=== PATIENT | female | born 1995 | race African-American/Black ===

== ENCOUNTER 2021-04-08 19:21 | Emergency (ER) | payer OTHER ==
[2021-04-08] MEDS ORDERED: PANTOPRAZOLE 40 MG VIAL IVP STA (19:50)
[2021-04-08] MEDS ORDERED: SODIUM CHLORIDE 0.9% 1,000 ML IV STA ×2 (19:50→19:58)
[2021-04-08] MEDS ORDERED: ONDANSETRON 4 MG/2 ML VIAL IVP STA (19:50)
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
[2021-04-08 20:01] LABS: BASOPHILS # (AUTO) 0.1 10^3/uL (0.0-0.1); EOSINOPHILS % (AUTO) 0.4 %; HCT - HEMATOCRIT 41.7 % (37.0-47.0); HGB - HEMOGLOBIN 13.5 g/dL (12.0-16.0); LYMPHOCYTES # (AUTO) 1.1 10^3/uL (1.5-3.5); LYMPHOCYTES % (AUTO) 14.4 %; MEAN CORPUSCULAR HEMOGLOBIN 26.7 pg (27.0-31.0); MEAN CORPUSCULAR HGB CONC 32.4 g/dL (32.0-36.0); MEAN CORPUSCULAR VOLUME 82.6 fL (81.0-99.0); MEAN PLATELET VOLUME 8.7 fL (7.9-10.8); MONOCYTES # (AUTO) 0.4 10^3/uL (0.0-1.0); MONOCYTES % (AUTO) 5.1 %; NEUTROPHILS # (AUTO) 6.1 10^3/uL (1.5-6.6); NEUTROPHILS % (AUTO) 78.7 %; PLT - PLATELET COUNT 314 10^3/uL (130-450); RED BLOOD COUNT 5.05 10^6/uL (4.20-5.40); RED CELL DISTRIBUTION WIDTH 14.2 % (12.0-15.0); WHITE BLOOD COUNT 7.8 x10^3/uL (4.8-10.8)
[2021-04-08 20:14] LABS: ALBUMIN 4.7 g/dL (3.2-5.5); ALBUMIN/GLOBULIN RATIO 1.4 (1.0-2.2); CREATININE 0.6 mg/dL (0.4-1.0); POTASSIUM 3.5 mmol/L (3.5-5.0)
[2021-04-08] MEDS ORDERED: HALOPERIDOL 5 MG/ML VIAL IVP ONE (20:42)
[2021-04-08 21:03] LABS: BILIRUBIN,URINE NEGATIVE (NEGATIVE); GLUCOSE, URINE (UA) NEGATIVE (NEGATIVE); KETONES,URINE (UA) NEGATIVE (NEGATIVE); LEUKOCYTE ESTERASE, URINE NEGATIVE (NEGATIVE); NITRITE,URINE NEGATIVE (NEGATIVE); OCCULT BLOOD,URINE NEGATIVE (NEGATIVE); PH,URINE 8.5 PH (5.0-7.5); PROTEIN,URINE TRACE mg/dL (NEGATIVE); UROBILINOGEN,URINE 0.2 (NORMAL) E.U./dL (NORMAL)
[2021-04-08 21:05] LABS: CLARITY,URINE CLEAR (CLEAR); HCG UR QUAL NEGATIVE
[2021-04-08 21:10] LABS: MUDS CUTOFF CONCENTRATIONS CUTOFF CONC BELOW:
[2021-04-08 21:20] LABS: AMPHETAMINE SCREEN,URINE NEGATIVE (NEGATIVE); BARBITURATE SCREEN,UR POSITIVE (NEGATIVE); BENZODIAZEPINES SCREEN, URINE NEGATIVE (NEGATIVE); COCAINE SCREEN URINE NEGATIVE (NEGATIVE); METHADONE SCREEN, URINE NEGATIVE (NEGATIVE); METHAMPHETAMINES SCREEN, URINE NEGATIVE (NEGATIVE); OPIATE SCREEN, URINE NEGATIVE (NEGATIVE); OXYCODONE SCREEN, URINE NEGATIVE (NEGATIVE); PROPOXYPHENE SCREEN, URINE NEGATIVE (NEGATIVE); THC CANNABINOID SCREEN, URINE POSITIVE (NEGATIVE); TRICYCLIC ANTIDEPRESSANT,URINE NEGATIVE (NEGATIVE)
[2021-04-08 21:39] VITALS: BP 116/89
== END 2021-04-08 21:41 | disposition home or self-care (01) ==
LOC: ED 19:21
DX: T42.3X1A Poisoning by barbiturates, accidental (unintentional), initial encounter (principal); R11.2 Nausea with vomiting, unspecified; F12.10 Cannabis abuse, uncomplicated
CPT/HCPCS: 36415; 80053; 80306; 80320; 81001; 81003; 81025; 83690; 85025; 87086; 96361; 96374; 96375; 99283

== ENCOUNTER 2022-02-23 08:00 | Outpatient (CLI) | payer OTHER ==
[2022-02-23 23:00] LABS: BACTERIAL VAGINOSIS DNA NEGATIVE (NEGATIVE); CANDIDA GLABRATA DNA NEGATIVE (NEGATIVE); CANDIDA GROUP DNA POSITIVE (NEGATIVE); CANDIDA KRUSEI DNA NEGATIVE (NEGATIVE); TRICHOMONAS VAGINALIS DNA NEGATIVE (NEGATIVE)
[2022-02-24 00:01] LABS: CHLAMYDIA TRACHOMATIS DNA NEGATIVE (NEGATIVE); NEISSERIA GONORRHOEAE DNA NEGATIVE (NEGATIVE)
[2022-02-24 06:09] LABS: HIV SCREEN 4TH GENERATION Non Reactive (Non Reactive); HSV 1 IGG TYPE SPEC <0.91 index (0.00-0.90); HSV 2 IGG TYPE SPEC <0.91 index (0.00-0.90)
[2022-02-24 08:10] LABS: RPR Non Reactive (Non Reactive)
== END 2022-02-23 23:59 | disposition home or self-care (01) ==
LOC: LAB.N 08:00
PROVIDERS: ATTEND Family Medicine
DX: R30.0 Dysuria (principal); N89.8 Other specified noninflammatory disorders of vagina; Z20.2 Contact with and (suspected) exposure to infections with a predominantly sexual mode of transmission
CPT/HCPCS: 81514; 86592; 86695; 86696; 87086; 87389; 87491; 87591; 87661

== ENCOUNTER 2022-08-01 11:56 | Emergency (ER) | payer OTHER ==
[2022-08-01 12:11] VITALS: BP 118/78
--- NOTE | 2022-08-01 12:44 | XRAY Report ---
PROCEDURE: Chest 2 View X-Ray INDICATIONS: cough TECHNIQUE: 2 views of the chest were acquired. COMPARISON: None. FINDINGS: Surgical changes and devices: None. Lungs and pleura: No pleural effusions or pneumothorax. Lungs are clear. Mediastinum: Mediastinal contours are normal. Heart size is normal. Bones and chest wall: No suspicious bony abnormalities. Soft tissues appear unremarkable. IMPRESSION: No acute radiographic abnormality. Reviewed by: Lester Davis MD on 08/01/2022 12:43 PM PST Approved by: Lester Davis MD on 08/01/2022 12:43 PM PST Station ID: [id number]
--- OUTSIDE RECORDS SUMMARY | 2022-08-01 12:53 | EXTERNAL MEDICAL SUMMARY RPT | Continuity of Care Document ---
:1995 Author Organization [facility] Address [address] [place] [phone] Phone Care Team Providers Name Role Phone Armando King Unavailable Unavailable Allergies No information. Encounters No information. Functional Status No information. Immunizations No information. Medications No information. Problems No information. Procedures No information. Results/Labs test date author facility value unit interpret ation Result panel 1 (unknown) (no (unknown) (unknown) (no value) (units (unk nown) date) unknown) (unknown) (no (unknown) (unknown) [id number] (units (unkno wn) date) unknown) (unknown) (no (unknown) (unknown) 08:37 (units (unkno wn) date) unknown) (unknown) (no (unknown) (unknown) 05/09/22 (units (unkno wn) date) unknown) (unknown) (no (unknown) (unknown) 05/09/22] (units (unkn own) date) unknown) (unknown) (no (unknown) (unknown) 26 yo female (units (u nknown) date) presents today unknown) for a medication review/ADHD. (unknown) (no (unknown) (unknown) Additional (units (unk nown) date) Social History unknown) (unknown) (no (unknown) (unknown) Adult ADHD (units (unk nown) date) unknown) (unknown) (no (unknown) (unknown) Age/Sex: 26 / F (units (unknown) date) Date of Service: unknown) (unknown) (no (unknown) (unknown) Allergies (units (unkn own) date) unknown) (unknown) (no (unknown) (unknown) [place], [place] (units ( unknown) date) [id number] unknown) (unknown) (no (unknown) (unknown) Anxiety (units (unkno wn) date) unknown) (unknown) (no (unknown) (unknown) Attending Dr: (units ( unknown) date) Armando King unknown) D.O. (unknown) (no (unknown) (unknown) : 1995 (units (unknown) date) Acct:[id number] unknown) (unknown) (no (unknown) (unknown) Dept at (units (unkno wn) date) . unknown) (unknown) (no (unknown) (unknown) Diabetes (units (unkno wn) date) mellitus unknown) (unknown) (no (unknown) (unknown) Diet and (units (unkno wn) date) Exercise unknown) (unknown) (no (unknown) (unknown) Documented By: (units (unknown) date) Armando King unknown) D.O. 05/09/22 0836 (unknown) (no (unknown) (unknown) Draft (units (unkno wn) date) unknown) (unknown) (no (unknown) (unknown) Dysmenorrhea (units (u nknown) date) unknown) (unknown) (no (unknown) (unknown) Excess skin of (units (unknown) date) abdominal wall unknown) (unknown) (no (unknown) (unknown) Family History (units (unknown) date) (Reviewed unknown) 02/20/21 @ 13:37 by KATY Alejandro) (unknown) (no (unknown) (unknown) Family Practice (units (unknown) date) Office Visit unknown) (unknown) (no (unknown) (unknown) Father (units (unknown) date) No problems unknown) noted. (unknown) (no (unknown) (unknown) [facility] (units (unknown) date[facility] unknown) (unknown) (no (unknown) (unknown) Grandmother (units (un known) date) unknown) Hypertension (unknown) (no (unknown) (unknown) Height 5 ft 6 in (units (unknown) date) unknown) (unknown) (no (unknown) (unknown) Insomnia (units (unkno wn) date) unknown) (unknown) (no (unknown) (unknown) Intake Note: (units (u nknown) date) unknown) (unknown) (no (unknown) (unknown) Intake performed (units (unknown) date) by: Yoselyn Spence unknown) (unknown) (no (unknown) (unknown) Intake (units (unkno wn) date) unknown) (unknown) (no (unknown) (unknown) Intake- Clincial (units (unknown) date) Staff unknown) (unknown) (no (unknown) (unknown) Last Menstural (units (unknown) date) Cycle + Details unknown) (unknown) (no (unknown) (unknown) Loc: [facility] (units (unkno wn) date) unknown) (unknown) (no (unknown) (unknown) Medical History (units (unknown) date) (Updated 04/24/21 unknown) @ 14:54 by Armando King DO) (unknown) (no (unknown) (unknown) Medications (units (un known) date) unknown) (unknown) (no (unknown) (unknown) Mental health (units ( unknown) date) problem unknown) (unknown) (no (unknown) (unknown) Mother (units (unkno wn) date) Hypertension unknown) (unknown) (no (unknown) (unknown) (normal (units (u nknown) date) spontaneous unknown) vaginal delivery) (unknown) (no (unknown) (unknown) No Known Drug (units ( unknown) date) Allergies Allergy unknown) (Verified 05/09/22 08:37) (unknown) (no (unknown) (unknown) Other Menstrual (units (unknown) date) Period: Uncertain unknown) (unknown) (no (unknown) (unknown) PFSH (units (unkno wn) date) unknown) (unknown) (no (unknown) (unknown) Patellar (units (unkno wn) date) tendinitis of unknown) both knees (unknown) (no (unknown) (unknown) Patient: (units (unkno wn) date) Pia Chavez S unknown) MR#: [id number] (unknown) (no (unknown) (unknown) Reason For Visit (units (unknown) date) unknown) (unknown) (no (unknown) (unknown) Safety (units (unkno wn) date) unknown) (unknown) (no (unknown) (unknown) Scabies (units (unkno wn) date) unknown) (unknown) (no (unknown) (unknown) Signed By: (units (unk nown) date) unknown) (unknown) (no (unknown) (unknown) Smoking Status: (units (unknown) date) Never smoker unknown) (unknown) (no (unknown) (unknown) Social History (units (unknown) date) unknown) (unknown) (no (unknown) (unknown) Stroke (units (unkno wn) date) unknown) (unknown) (no (unknown) (unknown) This note may (units ( unknown) date) have been all or unknown) partially generated using voice recognition (unknown) (no (unknown) (unknown) Tobacco + (units (unkn own) date) Substance Use unknown) (unknown) (no (unknown) (unknown) Tobacco Status (units (unknown) date) unknown) (unknown) (no (unknown) (unknown) Type(s) of (units (unk nown) date) exercise: other unknown) (unknown) (no (unknown) (unknown) Vaginal (units (unkno wn) date) discharge unknown) (unknown) (no (unknown) (unknown) Visit Reasons: (units (unknown) date) Medication unknown) Review/ADHD (unknown) (no (unknown) (unknown) Vitals (units (unkno wn) date) unknown) (unknown) (no (unknown) (unknown) Well woman exam (units (unknown) date) with routine unknown) gynecological exam (unknown) (no (unknown) (unknown) additional (units (unk nown) date) social history: unknown) Taking care toddler (chasing) (unknown) (no (unknown) (unknown) caffeine: Yes (units ( unknown) date) (Rare) unknown) (unknown) (no (unknown) (unknown) daily servings (units (unknown) date) fruits/ve-1 unknown) (unknown) (no (unknown) (unknown) do you feel safe (units (unknown) date) at home: Yes unknown) (unknown) (no (unknown) (unknown) duration: 45-60 (units (unknown) date) minutes/day unknown) (unknown) (no (unknown) (unknown) during the past (units (unknown) date) year weight has: unknown) remained stable (unknown) (no (unknown) (unknown) eating out: 1-3 (units (unknown) date) times/week unknown) (unknown) (no (unknown) (unknown) escitalopram (units (u nknown) date) oxalate 20 mg unknown) tablet 20 mg PO DAILY anxiety with depression #30 (unknown) (no (unknown) (unknown) frequency: daily (units (unknown) date) unknown) (unknown) (no (unknown) (unknown) have occurred. (units (unknown) date) If there are any unknown) questions, please contact the Medical Records (unknown) (no (unknown) (unknown) household (units (unkn own) date) members: spouse unknown) and children (unknown) (no (unknown) (unknown) ibuprofen 600 mg (units (unknown) date) tablet 600 mg PO unknown) TID PRN pain #90 tabs 08/04/20 [Rx Confirmed (unknown) (no (unknown) (unknown) marital status: (units (unknown) date) unknown) (unknown) (no (unknown) (unknown) may occur. (units (unk nown) date) Occasional unknown) wrong-word or 'sound-alike' substitutions may have (unknown) (no (unknown) (unknown) number of (units (unkn own) date) children: 1 unknown) (unknown) (no (unknown) (unknown) occupational (units (u nknown) date) status: unknown) unemployed (unknown) (no (unknown) (unknown) occurred due to (units (unknown) date) the inherent unknown) limitations of voice recognition software. Please (unknown) (no (unknown) (unknown) pets and (units (unkno wn) date) animals: No unknown) (unknown) (no (unknown) (unknown) read the note (units ( unknown) date) carefully and unknown) recognize, using context, where these substitutions (unknown) (no (unknown) (unknown) sexual history: (units (unknown) date) Monogamous with unknown) , no hx STDs (unknown) (no (unknown) (unknown) software. (units (unkn own) date) Although every unknown) effort is made to edit content, supervisor opening and picking errors (unknown) (no (unknown) (unknown) substance use (units ( unknown) date) type: former unknown) substance user (unknown) (no (unknown) (unknown) tabs 04/04/22 (units ( unknown) date) [Rx Confirmed unknown) 05/09/22] (unknown) (no (unknown) (unknown) well-balanced (units ( unknown) date) diet: about half unknown) the time Result panel 2 (unknown) (no (unknown) (unknown) (no value) (units (unk nown) date) unknown) (unknown) (no (unknown) (unknown) [id number] (units (unkno wn) date) unknown) (unknown) (no (unknown) (unknown) 08:37 (units (unkno wn) date) unknown) (unknown) (no (unknown) (unknown) 05/09/22 (units (unkno wn) date) unknown) (unknown) (no (unknown) (unknown) 05/09/22] (units (unkn own) date) unknown) (unknown) (no (unknown) (unknown) 26 yo female (units (un known) date) presents today unknown) for a medication review/ADHD. Pt states she was sent (unknown) (no (unknown) (unknown) Additional (units (unk nown) date) Social History unknown) (unknown) (no (unknown) (unknown) Adult ADHD (units (unk nown) date) unknown) (unknown) (no (unknown) (unknown) Age/Sex: 26 / F (units (unknown) date) Date of Service: unknown) (unknown) (no (unknown) (unknown) Allergies (units (unkn own) date) unknown) (unknown) (no (unknown) (unknown) [place], [place] (units ( unknown) date) [id number] unknown) (unknown) (no (unknown) (unknown) Anxiety (units (unkno wn) date) unknown) (unknown) (no (unknown) (unknown) Attending Dr: (units ( unknown) date) Armando King unknown) D.O. (unknown) (no (unknown) (unknown) BMI 25.0 (units (unkno wn) date) unknown) (unknown) (no (unknown) (unknown) BP 112/62 (units (unkn own) date) unknown) (unknown) (no (unknown) (unknown) Blood Pressure (units (unknown) date) Location Lt unknown) brachial (unknown) (no (unknown) (unknown) : 1995 (units (unknown) date) Acct:[id number] unknown) (unknown) (no (unknown) (unknown) Dept at (units (unkno wn) date) . unknown) (unknown) (no (unknown) (unknown) Diabetes (units (unkno wn) date) mellitus unknown) (unknown) (no (unknown) (unknown) Diet and (units (unkno wn) date) Exercise unknown) (unknown) (no (unknown) (unknown) Documented By: (units (unknown) date) Armando King unknown) D.OColin 05/09/22 0836 (unknown) (no (unknown) (unknown) Draft (units (unkno wn) date) unknown) (unknown) (no (unknown) (unknown) Dysmenorrhea (units (u nknown) date) unknown) (unknown) (no (unknown) (unknown) Excess skin of (units (unknown) date) abdominal wall unknown) (unknown) (no (unknown) (unknown) Family History (units (unknown) date) (Reviewed unknown) 02/20/21 @ 13:37 by KATY Alejandro) (unknown) (no (unknown) (unknown) Family Practice (units (unknown) date) Office Visit unknown) (unknown) (no (unknown) (unknown) Father (units (unknown) date) No problems unknown) noted. (unknown) (no (unknown) (unknown) [facility] (units (unknown) date) [facility] unknown) (unknown) (no (unknown) (unknown) Grandmother (units (un known) date) unknown) Hypertension (unknown) (no (unknown) (unknown) Height 5 ft 6 in (units (unknown) date) unknown) (unknown) (no (unknown) (unknown) Insomnia (units (unkno wn) date) unknown) (unknown) (no (unknown) (unknown) Intake Note: (units (u nknown) date) unknown) (unknown) (no (unknown) (unknown) Intake performed (units (unknown) date) by: Yoselyn Spence unknown) (unknown) (no (unknown) (unknown) Intake (units (unkno wn) date) unknown) (unknown) (no (unknown) (unknown) Intake- Clincial (units (unknown) date) Staff unknown) (unknown) (no (unknown) (unknown) Last Menstural (units (unknown) date) Cycle + Details unknown) (unknown) (no (unknown) (unknown) Loc: [facility] (units (unkno wn) date) unknown) (unknown) (no (unknown) (unknown) Medical History (units (unknown) date) (Updated 04/24/21 unknown) @ 14:54 by Armando King DO) (unknown) (no (unknown) (unknown) Medications (units (un known) date) unknown) (unknown) (no (unknown) (unknown) Mental health (units ( unknown) date) problem unknown) (unknown) (no (unknown) (unknown) Mother (units (unkno wn) date) Hypertension unknown) (unknown) (no (unknown) (unknown) (normal (units (u nknown) date) spontaneous unknown) vaginal delivery) (unknown) (no (unknown) (unknown) No Known Drug (units ( unknown) date) Allergies Allergy unknown) (Verified 05/09/22 08:37) (unknown) (no (unknown) (unknown) Other Menstrual (units (unknown) date) Period: Uncertain unknown) (unknown) (no (unknown) (unknown) Oxygen Delivery (units (unknown) date) Method room air unknown) (unknown) (no (unknown) (unknown) PFSH (units (unkno wn) date) unknown) (unknown) (no (unknown) (unknown) Patellar (units (unkno wn) date) tendinitis of unknown) both knees (unknown) (no (unknown) (unknown) Patient: (units (unkno wn) date) Pia Chavez S unknown) MR#: [id number] (unknown) (no (unknown) (unknown) Position Sitting (units (unknown) date) unknown) (unknown) (no (unknown) (unknown) Pulse 99 H (units (unk nown) date) unknown) (unknown) (no (unknown) (unknown) Pulse Oximetry (units (unknown) date) (%) 97 unknown) (unknown) (no (unknown) (unknown) Pulse Source (units (u nknown) date) Monitor unknown) (unknown) (no (unknown) (unknown) Reason For Visit (units (unknown) date) unknown) (unknown) (no (unknown) (unknown) Safety (units (unkno wn) date) unknown) (unknown) (no (unknown) (unknown) Scabies (units (unkno wn) date) unknown) (unknown) (no (unknown) (unknown) Signed By: (units (unk nown) date) unknown) (unknown) (no (unknown) (unknown) Smoking Status: (units (unknown) date) Never smoker unknown) (unknown) (no (unknown) (unknown) Social History (units (unknown) date) unknown) (unknown) (no (unknown) (unknown) Stroke (units (unkno wn) date) unknown) (unknown) (no (unknown) (unknown) This note may (units ( unknown) date) have been all or unknown) partially generated using voice recognition (unknown) (no (unknown) (unknown) Tobacco + (units (unkn own) date) Substance Use unknown) (unknown) (no (unknown) (unknown) Tobacco Status (units (unknown) date) unknown) (unknown) (no (unknown) (unknown) Type(s) of (units (unk nown) date) exercise: other unknown) (unknown) (no (unknown) (unknown) Vaginal (units (unkno wn) date) discharge unknown) (unknown) (no (unknown) (unknown) Visit Reasons: (units (unknown) date) Medication unknown) Review/ADHD (unknown) (no (unknown) (unknown) Vitals (units (unkno wn) date) unknown) (unknown) (no (unknown) (unknown) Weight 155 lb 4 (units (unknown) date) oz unknown) (unknown) (no (unknown) (unknown) Well woman exam (units (unknown) date) with routine unknown) gynecological exam (unknown) (no (unknown) (unknown) additional (units (unk nown) date) social history: unknown) Taking care toddler (chasing) (unknown) (no (unknown) (unknown) caffeine: Yes (units ( unknown) date) (Rare) unknown) (unknown) (no (unknown) (unknown) daily servings (units (unknown) date) fruits/ve-1 unknown) (unknown) (no (unknown) (unknown) do you feel safe (units (unknown) date) at home: Yes unknown) (unknown) (no (unknown) (unknown) duration: 45-60 (units (unknown) date) minutes/day unknown) (unknown) (no (unknown) (unknown) during the past (units (unknown) date) year weight has: unknown) remained stable (unknown) (no (unknown) (unknown) eating out: 1-3 (units (unknown) date) times/week unknown) (unknown) (no (unknown) (unknown) escitalopram (units (u nknown) date) oxalate 20 mg unknown) tablet 20 mg PO DAILY anxiety with depression #30 (unknown) (no (unknown) (unknown) frequency: daily (units (unknown) date) unknown) (unknown) (no (unknown) (unknown) have occurred. (units (unknown) date) If there are any unknown) questions, please contact the Medical Records (unknown) (no (unknown) (unknown) household (units (unkn own) date) members: spouse unknown) and children (unknown) (no (unknown) (unknown) ibuprofen 600 mg (units (unknown) date) tablet 600 mg PO unknown) TID PRN pain #90 tabs 08/04/20 [Rx Confirmed (unknown) (no (unknown) (unknown) marital status: (units (unknown) date) unknown) (unknown) (no (unknown) (unknown) may occur. (units (unk nown) date) Occasional unknown) wrong-word or 'sound-alike' substitutions may have (unknown) (no (unknown) (unknown) number of (units (unkn own) date) children: 1 unknown) (unknown) (no (unknown) (unknown) occupational (units (u nknown) date) status: unknown) unemployed (unknown) (no (unknown) (unknown) occurred due to (units (unknown) date) the inherent unknown) limitations of voice recognition software. Please (unknown) (no (unknown) (unknown) pets and (units (unkno wn) date) animals: No unknown) (unknown) (no (unknown) (unknown) previously for (units (unknown) date) ADHD but the unknown) office didn't have the Dr available. (unknown) (no (unknown) (unknown) read the note (units ( unknown) date) carefully and unknown) recognize, using context, where these substitutions (unknown) (no (unknown) (unknown) sexual history: (units (unknown) date) Monogamous with unknown) , no hx STDs (unknown) (no (unknown) (unknown) software. (units (unkn own) date) Although every unknown) effort is made to edit content, supervisor opening and picking errors (unknown) (no (unknown) (unknown) substance use (units ( unknown) date) type: former unknown) substance user (unknown) (no (unknown) (unknown) tabs 04/04/22 (units ( unknown) date) [Rx Confirmed unknown) 05/09/22] (unknown) (no (unknown) (unknown) well-balanced (units ( unknown) date) diet: about half unknown) the time Result panel 3 (unknown) (no (unknown) (unknown) (no value) (units (unk nown) date) unknown) (unknown) (no (unknown) (unknown) (1) Adult ADHD: (units (unknown) date) unknown) (unknown) (no (unknown) (unknown) (2) Anxiety: (units (u nknown) date) unknown) (unknown) (no (unknown) (unknown) [id number] (units (unkno wn) date) unknown) (unknown) (no (unknown) (unknown) 08:37 (units (unkno wn) date) unknown) (unknown) (no (unknown) (unknown) 05/09/22 1402 (units ( unknown) date) unknown) (unknown) (no (unknown) (unknown) 05/09/22 (units (unkno wn) date) unknown) (unknown) (no (unknown) (unknown) 05/09/22] (units (unkn own) date) unknown) (unknown) (no (unknown) (unknown) 26 yo female (units (un known) date) presents today for unknown) a medication review/ADHD. Pt states she was sent (unknown) (no (unknown) (unknown) Abdomen-soft (units (u nknown) date) nontender, no HSM, unknown) no palpable masses rebound or guarding (unknown) (no (unknown) (unknown) Additional Social (units (unknown) date) History unknown) (unknown) (no (unknown) (unknown) Adult ADHD (units (unk nown) date) unknown) (unknown) (no (unknown) (unknown) Age/Sex: 26 / F (units (unknown) date) Date of Service: unknown) (unknown) (no (unknown) (unknown) Allergies (units (unkn own) date) unknown) (unknown) (no (unknown) (unknown) [place], [place] (units ( unknown) date) [id number] unknown) (unknown) (no (unknown) (unknown) Anxiety (units (unkno wn) date) unknown) (unknown) (no (unknown) (unknown) Assessment + Plan (units (unknown) date) unknown) (unknown) (no (unknown) (unknown) Assessment and (units (unknown) date) Plan: unknown) (unknown) (no (unknown) (unknown) Attending Dr: Armando (units (unknown) date) Darrell King D.O. unknown) (unknown) (no (unknown) (unknown) Attention-deficit (units (unknown) date) hyperactivity unknown) disorder, unspecified type (unknown) (no (unknown) (unknown) BMI 25.0 (units (unkno wn) date) unknown) (unknown) (no (unknown) (unknown) BP 112/62 (units (unkn own) date) unknown) (unknown) (no (unknown) (unknown) Blood Pressure (units (unknown) date) Location Lt unknown) brachial (unknown) (no (unknown) (unknown) Chest-heart (units (unk nown) date) regular rate and unknown) rhythm lungs clear to auscultation no wheezes rales (unknown) (no (unknown) (unknown) Chief Complaint (units (unknown) date) unknown) (unknown) (no (unknown) (unknown) Chief Complaint: (units (unknown) date) Follow-up unknown) underlying medical conditions (unknown) (no (unknown) (unknown) : 1995 (units (unknown) date) Acct:[id number] unknown) (unknown) (no (unknown) (unknown) Dept at (units (unkno wn) date) . unknown) (unknown) (no (unknown) (unknown) Details: (units (unkno wn) date) unknown) (unknown) (no (unknown) (unknown) Diabetes mellitus (units (unknown) date) unknown) (unknown) (no (unknown) (unknown) Diet and Exercise (units (unknown) date) unknown) (unknown) (no (unknown) (unknown) Documented By: (units (unknown) date) Armando King unknown) D.O. 05/09/22 0836 (unknown) (no (unknown) (unknown) Dysmenorrhea (units (u nknown) date) unknown) (unknown) (no (unknown) (unknown) Exam Narrative (units (unknown) date) unknown) (unknown) (no (unknown) (unknown) Exam Narrative: (units (unknown) date) unknown) (unknown) (no (unknown) (unknown) Exam (units (unkno wn) date) unknown) (unknown) (no (unknown) (unknown) Excess skin of (units (unknown) date) abdominal wall unknown) (unknown) (no (unknown) (unknown) Family History (units (unknown) date) (Reviewed 05/09/22 unknown) @ 14:02 by Armando King DO) (unknown) (no (unknown) (unknown) Family Practice (units (unknown) date) Office Visit unknown) (unknown) (no (unknown) (unknown) Father (units (unknown) date) No problems noted. unknown) (unknown) (no (unknown) (unknown) [facility] (units (unknown) date) [facility] unknown) (unknown) (no (unknown) (unknown) General physical (units (unknown) date) examination, unknown) physical examination (unknown) (no (unknown) (unknown) Grandmother (units (un known) date) unknown) Hypertension (unknown) (no (unknown) (unknown) HPI (units (unkno wn) date) unknown) (unknown) (no (unknown) (unknown) Head-normocephali (units (unknown) date) c atraumatic, unknown) (unknown) (no (unknown) (unknown) Height 5 ft 6 in (units (unknown) date) unknown) (unknown) (no (unknown) (unknown) Insomnia (units (unkno wn) date) unknown) (unknown) (no (unknown) (unknown) Intake Note: (units (u nknown) date) unknown) (unknown) (no (unknown) (unknown) Intake performed (units (unknown) date) by: Yoselyn Spence unknown) (unknown) (no (unknown) (unknown) Intake (units (unkno wn) date) unknown) (unknown) (no (unknown) (unknown) Intake- Clincial (units (unknown) date) Staff unknown) (unknown) (no (unknown) (unknown) Last Menstural (units (unknown) date) Cycle + Details unknown) (unknown) (no (unknown) (unknown) Loc: [facility] (units (unkno wn) date) unknown) (unknown) (no (unknown) (unknown) Medical History (units (unknown) date) (Reviewed 05/09/22 unknown) @ 14:02 by Armando King DO) (unknown) (no (unknown) (unknown) Medications (units (un known) date) unknown) (unknown) (no (unknown) (unknown) Medications: (units (u nknown) date) unknown) (unknown) (no (unknown) (unknown) Mental health (units ( unknown) date) problem unknown) (unknown) (no (unknown) (unknown) Mother (units (unkno wn) date) Hypertension unknown) (unknown) (no (unknown) (unknown) (normal (units (u nknown) date) spontaneous unknown) vaginal delivery) (unknown) (no (unknown) (unknown) Neck-supple no (units (unknown) date) thyromegaly, JVD unknown) or lymphadenopathy (unknown) (no (unknown) (unknown) No Known Drug (units ( unknown) date) Allergies Allergy unknown) (Verified 05/09/22 08:37) (unknown) (no (unknown) (unknown) Orders: (units (unkno wn) date) unknown) (unknown) (no (unknown) (unknown) Other Menstrual (units (unknown) date) Period: Uncertain unknown) (unknown) (no (unknown) (unknown) Oxygen Delivery (units (unknown) date) Method room air unknown) (unknown) (no (unknown) (unknown) PFSH (units (unkno wn) date) unknown) (unknown) (no (unknown) (unknown) Patellar (units (unkno wn) date) tendinitis of both unknown) knees (unknown) (no (unknown) (unknown) Patient: (units (unkno wn) date) ScottPia S unknown) MR#: [id number] (unknown) (no (unknown) (unknown) Position Sitting (units (unknown) date) unknown) (unknown) (no (unknown) (unknown) Pulse 99 H (units (unk nown) date) unknown) (unknown) (no (unknown) (unknown) Pulse Oximetry (units (unknown) date) (%) 97 unknown) (unknown) (no (unknown) (unknown) Pulse Source (units (u nknown) date) Monitor unknown) (unknown) (no (unknown) (unknown) ROS Narrative (units ( unknown) date) unknown) (unknown) (no (unknown) (unknown) ROS Narrative: (units (unknown) date) unknown) (unknown) (no (unknown) (unknown) ROS per HPI the (units (unknown) date) patient notes unknown) issues related to remaining focused on task and (unknown) (no (unknown) (unknown) ROS (units (unkno wn) date) unknown) (unknown) (no (unknown) (unknown) Reason For Visit (units (unknown) date) unknown) (unknown) (no (unknown) (unknown) Referral (units (unkno wn) date) Neuropsychology unknown) F41.9 - Anxiety disorder, unspecified, F90.9 (unknown) (no (unknown) (unknown) Referrals (units (unkn own) date) unknown) (unknown) (no (unknown) (unknown) Refilled (units (unkno wn) date) unknown) (unknown) (no (unknown) (unknown) Safety (units (unkno wn) date) unknown) (unknown) (no (unknown) (unknown) Scabies (units (unkno wn) date) unknown) (unknown) (no (unknown) (unknown) She also has a (units (unknown) date) comorbid condition unknown) therapist in the past have consider her to (unknown) (no (unknown) (unknown) Signed By: (units (unk nown) date) <Electronically unknown) signed by Armando King D.O.> (unknown) (no (unknown) (unknown) Signed (units (unkno wn) date) unknown) (unknown) (no (unknown) (unknown) Smoking Status: (units (unknown) date) Never smoker unknown) (unknown) (no (unknown) (unknown) Social History (units (unknown) date) unknown) (unknown) (no (unknown) (unknown) Status: Acute (units ( unknown) date) unknown) (unknown) (no (unknown) (unknown) Stroke (units (unkno wn) date) unknown) (unknown) (no (unknown) (unknown) The patient has (units (unknown) date) run out of her unknown) Lexapro and needs a refill she is not been seeing (unknown) (no (unknown) (unknown) The patient has (units (unknown) date) subjective unknown) concerns in regards to this diagnosis she is been (unknown) (no (unknown) (unknown) This 26-year-old (units (unknown) date) female with a unknown) history of generalized anxiety disorder presents (unknown) (no (unknown) (unknown) This note may (units ( unknown) date) have been all or unknown) partially generated using voice recognition (unknown) (no (unknown) (unknown) Tobacco + (units (unkn own) date) Substance Use unknown) (unknown) (no (unknown) (unknown) Tobacco Status (units (unknown) date) unknown) (unknown) (no (unknown) (unknown) Type(s) of (units (unk nown) date) exercise: other unknown) (unknown) (no (unknown) (unknown) Vaginal discharge (units (unknown) date) unknown) (unknown) (no (unknown) (unknown) Visit Reasons: (units (unknown) date) Medication unknown) Review/ADHD (unknown) (no (unknown) (unknown) Vital signs are (units (unknown) date) reported, charted unknown) and reviewed with patient (unknown) (no (unknown) (unknown) Vitals (units (unkno wn) date) unknown) (unknown) (no (unknown) (unknown) Weight 155 lb 4 (units (unknown) date) oz unknown) (unknown) (no (unknown) (unknown) Well appearing (units (unknown) date) young female adult unknown) with above complaints, contributed to history (unknown) (no (unknown) (unknown) Well woman exam (units (unknown) date) with routine unknown) gynecological exam (unknown) (no (unknown) (unknown) actually do a (units ( unknown) date) complete workup in unknown) assessment in regards to this potential (unknown) (no (unknown) (unknown) additional social (units (unknown) date) history: Taking unknown) care toddler (tamicasing) (unknown) (no (unknown) (unknown) and exam (units (unkno wn) date) unknown) (unknown) (no (unknown) (unknown) and she has seen (units (unknown) date) a therapist in unknown) some time recommendations regarding initiation (unknown) (no (unknown) (unknown) caffeine: Yes (units ( unknown) date) (Rare) unknown) (unknown) (no (unknown) (unknown) comorbid (units (unkno wn) date) condition. unknown) Initiation of medication upon the recommendations will be (unknown) (no (unknown) (unknown) daily servings (units (unknown) date) fruits/ve-1 unknown) (unknown) (no (unknown) (unknown) do you feel safe (units (unknown) date) at home: Yes unknown) (unknown) (no (unknown) (unknown) duration: 45-60 (units (unknown) date) minutes/day unknown) (unknown) (no (unknown) (unknown) during the past (units (unknown) date) year weight has: unknown) remained stable (unknown) (no (unknown) (unknown) eating out: 1-3 (units (unknown) date) times/week unknown) (unknown) (no (unknown) (unknown) escitalopram (units (u nknown) date) oxalate 20 mg PO unknown) DAILY 90 tabs 3RF anxiety with depression (unknown) (no (unknown) (unknown) escitalopram (units (u nknown) date) oxalate 20 mg unknown) tablet 20 mg PO DAILY anxiety with depression #90 (unknown) (no (unknown) (unknown) frequency: daily (units (unknown) date) unknown) (unknown) (no (unknown) (unknown) have occurred. If (units (unknown) date) there are any unknown) questions, please contact the Medical Records (unknown) (no (unknown) (unknown) have some ADHD (units ( unknown) date) issues and she is unknown) wondering if she could re-initiate the referral (unknown) (no (unknown) (unknown) her is (units (unknown) date) deployed. On unknown) today's visit we will proceed with reinitiating her (unknown) (no (unknown) (unknown) her therapist (units ( unknown) date) recently due to unknown) the challenges of raising 2 young children when (unknown) (no (unknown) (unknown) household (units (unkn own) date) members: spouse unknown) and children (unknown) (no (unknown) (unknown) ibuprofen 600 mg (units (unknown) date) tablet 600 mg PO unknown) TID PRN pain #90 tabs 08/04/20 [Rx Confirmed (unknown) (no (unknown) (unknown) impulsive and (units ( unknown) date) will often not unknown) complete tasks (unknown) (no (unknown) (unknown) impulsive her (units (u nknown) date) anxiety has been unknown) problematic recently currently off the medication (unknown) (no (unknown) (unknown) management. She (units (unknown) date) will re-initiate unknown) care and a refill was undertaken today. (unknown) (no (unknown) (unknown) marital status: (units (unknown) date) unknown) (unknown) (no (unknown) (unknown) may occur. (units (unk nown) date) Occasional unknown) wrong-word or 'sound-alike' substitutions may have (unknown) (no (unknown) (unknown) medication she (units (unknown) date) will gradually unknown) taper back up to her 20 mg dose and (unknown) (no (unknown) (unknown) number of (units (unkn own) date) children: 1 unknown) (unknown) (no (unknown) (unknown) occupational (units (u nknown) date) status: unemployed unknown) (unknown) (no (unknown) (unknown) occurred due to (units (unknown) date) the inherent unknown) limitations of voice recognition software. Please (unknown) (no (unknown) (unknown) of all the above (units (unknown) date) were reviewed unknown) today (unknown) (no (unknown) (unknown) or rhonchi, good (units (unknown) date) peripheral pulses unknown) (unknown) (no (unknown) (unknown) patient has run (units (unknown) date) out of her Lexapro unknown) over the past week has felt side effects of (unknown) (no (unknown) (unknown) pets and animals: (units (unknown) date) No unknown) (unknown) (no (unknown) (unknown) previously for (units (unknown) date) ADHD but the unknown) office didn't have the Dr available. (unknown) (no (unknown) (unknown) pursued pending (units (unknown) date) that referral unknown) (unknown) (no (unknown) (unknown) read the note (units ( unknown) date) carefully and unknown) recognize, using context, where these substitutions (unknown) (no (unknown) (unknown) recommendations (units (unknown) date) in regards to unknown) reinitiating care with a therapist were (unknown) (no (unknown) (unknown) recommended given (units (unknown) date) the family unknown) situational stress that is current and ongoing (unknown) (no (unknown) (unknown) referral to (units (un known) date) neuropsychology unknown) for ADHD workup evaluation and assessment. The (unknown) (no (unknown) (unknown) sexual history: (units (unknown) date) Monogamous with unknown) , no hx STDs (unknown) (no (unknown) (unknown) software. (units (unkn own) date) Although every unknown) effort is made to edit content, supervisor opening and picking errors (unknown) (no (unknown) (unknown) substance use (units ( unknown) date) type: former unknown) substance user (unknown) (no (unknown) (unknown) tabs 05/09/22 [Rx (units (unknown) date) Confirmed unknown) 05/09/22] (unknown) (no (unknown) (unknown) the clinic with a (units (unknown) date) chief complaint of unknown) a request for medication refills and also (unknown) (no (unknown) (unknown) therapist but (units ( unknown) date) with her unknown) being deployed has had issues related to time (unknown) (no (unknown) (unknown) to neuropsych for (units (unknown) date) this condition. unknown) She finds that she is often not focused, more (unknown) (no (unknown) (unknown) told by previous (units (unknown) date) counselors the unknown) potential for this occurrence. On today's visit (unknown) (no (unknown) (unknown) we will re-refer (units (unknown) date) her to unknown) neuropsychology in [place] in to a facility that can (unknown) (no (unknown) (unknown) well-balanced (units ( unknown) date) diet: about half unknown) the time (unknown) (no (unknown) (unknown) withdrawal and (units (unknown) date) notes that she is unknown) become more anxious. She usually sees a Social History date description facility 2022-05-09 00:00 Never smoked tobacco ([facility] Vital Signs date measurement value units 2022-05-09 00:00 BMI 25.0 kg/m2 2022-05-09 00:00 BP_diastolic 62 mmHg 2022-05-09 00:00 BP_systolic 112 mmHg 2022-05-09 00:00 heart_rate 99 /min 2022-05-09 00:00 height_metric 167.64 cm 2022-05-09 00:00 height_standard 66 in 2022-05-09 00:00 o2_saturation 97 % 2022-05-09 00:00 weight_metric 70.42 kg 2022-05-09 00:00 weight_standard 155.25 lb
--- NOTE | 2022-08-01 13:08 | ED Physician Documentation ---
PD HPI URI - Stated complaint Stated Complaint: COUGH/RIB PX - Chief complaint Chief Complaint: Resp - History obtained from History obtained from: Patient - History of Present Illness Timing - onset: How many weeks ago (2) Timing duration: Weeks (2) Timing details: Gradual onset, Still present (onset of URI symptoms 2 weeks ago with cough persisting and having green sputum and pain in chest with cough. Tightness with breathing and was Rx Albuterol MDI which has not helped much.) Associated symptoms: Productive cough, Dyspnea. No: Fever, Chills, Nasal congestion, NVD, Bilateral edema, Unilateral edema Contributing factors: Sick contact. No: Unimmunized, COPD / asthma Similar symptoms before: Has not had sx before Review of Systems Constitutional: reports: Myalgias. denies: Fever, Chills Nose: denies: Rhinorrhea / runny nose, Congestion Throat: denies: Sore throat Cardiac: reports: Chest pain / pressure (with coughing the past few days.). denies: Pedal edema, Calf pain Respiratory: reports: Dyspnea, Cough. denies: Hemoptysis GI: denies: Nausea, Vomiting, Diarrhea PD PAST MEDICAL HISTORY - Past Medical History Cardiovascular: None Respiratory: None Neuro: None Endocrine/Autoimmune: None GI: None [employer]: None : None HEENT: None Psych: Depression, Anxiety Musculoskeletal: None Derm: None - Past Surgical History Past Surgical History: No - Present Medications Home Medications: Ambulatory Orders Medication Instructions Recorded Confirmed Albuterol [Proventil Hfa] 1 - 2 puffs INH Q4HR PRN 08/01/22 08/01/22 Amoxicillin 500 mg PO TID #21 cap 08/01/22 Benzonatate [Tessalon] 100 mg PO TID PRN #20 cap 08/01/22 Fluconazole [Diflucan] 150 mg PO ONCE #1 tablet 08/01/22 dexAMETHasone [Decadron] 4 mg PO DAILY #5 tablet 08/01/22 - Allergies Allergies/Adverse Reactions: Allergies Allergy/AdvReac Type Severity Reaction Status Date / Time No Known Drug Allergies Allergy Verified 08/01/22 12:11 - Social History Does the pt smoke?: No Smoking Status: Never smoker Does the pt drink ETOH?: Yes Does the pt have substance abuse?: No - Immunizations Immunizations are current?: Yes - POLST Patient has POLST: No PD ED PE NORMAL - Vitals Vital signs reviewed: Yes - General General: Alert and oriented X 3, No acute distress, Well developed/nourished - HEENT HEENT: Pharynx benign - Neck Neck: Supple, no meningeal sign, No adenopathy - Cardiac Cardiac: RRR, No murmur - Respiratory Respiratory: Clear bilaterally - Derm Derm: Normal color, Warm and dry - Extremities Extremities: No edema, No calf tenderness / cord Results - Vitals Vitals: Vital Signs - 24 hr 08/01/22 12:07 Temperature 36.6 C Heart Rate 98 Respiratory 18 Rate Blood Pressure 118/78 O2 Saturation 100 Oxygen O2 Source Room air - Rads (name of study) chest xray Relevant Findings:: Prelim report reviewed, EMP independent interpretation of test (no infiltrates, PTX, nor effusions. ), See rad report PD Medical Decision Making - ED course Complexity details: reviewed results, considered differential (seems likely initially URI but has persisting cough and now productive green sputum with dyspnea. consider evolving bronchitis. CXR does not show any pneumonia. ), d/w patient Departure - Departure Disposition: 01 Home, Self Care Clinical Impression: Bronchitis, acute Qualifiers: Bronchitis organism: unspecified organism Qualified Code(s): J20.9 - Acute bronchitis, unspecified Condition: Stable Record reviewed to determine appropriate education?: Yes Instructions: ED Upper Resp Infec Abx Tx Follow-Up: AVRIL HUTCHISON, [Primary Care Provider] - Prescriptions: Amoxicillin 500 mg PO TID #21 cap dexAMETHasone [Decadron] 4 mg PO DAILY #5 tablet Fluconazole [Diflucan] 150 mg PO ONCE #1 tablet Benzonatate [Tessalon] 100 mg PO TID PRN #20 cap PRN Reason: Cough Comments: Given the duration of your symptoms and the productive sputum. It is reasonable that there may be a secondary bacterial infection on top of the initial presumed viral upper respiratory infection. I would continue with the albuterol inhaler previously prescribed and use 2 puffs 3-4 times daily to help with decreasing bronchial spasming and tightness. We can add amoxicillin 3 times daily for a week presuming some bacterial component. Decadron steroid anti-inflammatory to help with some of the bronchial inflammation as well. This should also help improve breathing. Stay well-hydrated. Tylenol if needed for pains. Benzonatate if needed for cough. I would anticipate improvement over the next several days and resolving over 4 to 5 days. I sent your prescriptions to [facility] pharmacy in [place]. Discharge Date/Time: 08/01/22 13:41
[2022-08-01] MEDS: AMOXICILLIN 250 MG CAPSULE PO STA (13:34)
[2022-08-01] MEDS: BENZONATATE 100 MG CAPSULE PO STA (13:34)
[2022-08-01] MEDS: DEXAMETHASONE 10 MG/ML VIAL PO STA (13:34)
[2022-08-01] MEDS: CHERRY SYRUP 10 ML UDC PO ONE (13:34)
== END 2022-08-01 13:41 | disposition home or self-care (01) ==
LOC: ED 11:56
DX: J20.9 Acute bronchitis, unspecified (principal)
CPT/HCPCS: 71046; 93005; 99283; A9270

== ENCOUNTER 2022-12-25 16:15 | Outpatient (CLI) | payer MEDICAID, OTHER ==
[2022-12-26 14:06] LABS: CHLAMYDIA TRACHOMATIS DNA NEGATIVE (NEGATIVE); NEISSERIA GONORRHOEAE DNA NEGATIVE (NEGATIVE); TRICHOMONAS VAGINALIS DNA NEGATIVE (NEGATIVE)
[2022-12-27 05:13] LABS: RPR Non Reactive (Non Reactive)
[2022-12-27 07:10] LABS: HIV SCREEN 4TH GENERATION Non Reactive (Non Reactive)
== END 2022-12-25 16:30 | disposition home or self-care (01) ==
LOC: LAB.N 16:15
PROVIDERS: ATTEND Specialist
DX: Z20.2 Contact with and (suspected) exposure to infections with a predominantly sexual mode of transmission (principal)
CPT/HCPCS: 36415; 86592; 87389; 87491; 87591; 87661

== ENCOUNTER 2023-02-01 08:00 | Outpatient (CLI) | payer MEDICAID ==
[2023-02-02 01:06] LABS: CHLAMYDIA TRACHOMATIS DNA NEGATIVE (NEGATIVE); NEISSERIA GONORRHOEAE DNA NEGATIVE (NEGATIVE)
[2023-02-02 11:33] LABS: BACTERIAL VAGINOSIS DNA POSITIVE (NEGATIVE); CANDIDA GLABRATA DNA NEGATIVE (NEGATIVE); CANDIDA GROUP DNA NEGATIVE (NEGATIVE); CANDIDA KRUSEI DNA NEGATIVE (NEGATIVE); TRICHOMONAS VAGINALIS DNA NEGATIVE (NEGATIVE)
== END 2023-02-01 23:59 | disposition home or self-care (01) ==
LOC: LAB.N 08:00
PROVIDERS: ATTEND Registered Nurse
DX: N89.8 Other specified noninflammatory disorders of vagina (principal)
CPT/HCPCS: 81514; 87491; 87591; 87661

== ENCOUNTER 2023-03-21 08:00 | Outpatient (CLI) | payer MEDICAID ==
[2023-03-22 11:08] LABS: BACTERIAL VAGINOSIS DNA NEGATIVE (NEGATIVE); CANDIDA GLABRATA DNA NEGATIVE (NEGATIVE); CANDIDA GROUP DNA POSITIVE (NEGATIVE); CANDIDA KRUSEI DNA NEGATIVE (NEGATIVE); TRICHOMONAS VAGINALIS DNA NEGATIVE (NEGATIVE)
== END 2023-03-21 23:59 | disposition home or self-care (01) ==
LOC: LAB.N 08:00
PROVIDERS: ATTEND Family Medicine
DX: N89.8 Other specified noninflammatory disorders of vagina (principal)
CPT/HCPCS: 81514

== ENCOUNTER 2023-04-10 13:57 | Outpatient (CLI) | payer MEDICAID ==
--- NOTE | 2023-04-10 15:17 | XRAY Report ---
PROCEDURE: Hand 3 View RT INDICATIONS: CRUSHING INJURY OF RIGHT HAND TECHNIQUE: 3 views of the hand(s) acquired. COMPARISON: None. FINDINGS: Bones: No fractures or dislocations. No suspicious bony lesions. Soft tissues: No suspicious soft tissue calcifications or masses. IMPRESSION: No acute bony abnormality. Reviewed by: Clare Holm MD on 04/10/2023 3:16 PM PST Approved by: Clare Holm MD on 04/10/2023 3:16 PM PST Station ID: [id number]
== END 2023-04-10 13:58 | disposition home or self-care (01) ==
LOC: DI 13:57
PROVIDERS: ATTEND Physician Assistant Medical
DX: S67.01XA Crushing injury of right thumb, initial encounter (principal)

== ENCOUNTER 2023-06-10 08:00 | Outpatient (CLI) | payer MEDICAID ==
[2023-06-10 22:14] LABS: BACTERIAL VAGINOSIS DNA NEGATIVE (NEGATIVE); CANDIDA GLABRATA DNA NEGATIVE (NEGATIVE); CANDIDA GROUP DNA NEGATIVE (NEGATIVE); CANDIDA KRUSEI DNA NEGATIVE (NEGATIVE); TRICHOMONAS VAGINALIS DNA NEGATIVE (NEGATIVE)
== END 2023-06-10 23:59 | disposition home or self-care (01) ==
LOC: LAB.N 08:00
PROVIDERS: ATTEND Family Medicine
DX: N89.8 Other specified noninflammatory disorders of vagina (principal); J40 Bronchitis, not specified as acute or chronic
CPT/HCPCS: 81514

== ENCOUNTER 2023-06-10 13:45 | Outpatient (CLI) | payer MEDICAID ==
--- NOTE | 2023-06-10 15:24 | XRAY Report ---
PROCEDURE: Chest 2V INDICATIONS: BRONCHITIS TECHNIQUE: 2 views of the chest were acquired. COMPARISON: Chest x-ray 08/01/2022. FINDINGS: Surgical changes and devices: None. Lungs and pleura: No pleural effusions or pneumothorax. Lungs are clear. Mediastinum: Mediastinal contours appear normal. Heart size is normal. Bones and chest wall: No suspicious bony lesions. Overlying soft tissues appear unremarkable. IMPRESSION: No acute cardiopulmonary process. Reviewed by: Sai Bruce MD on 06/10/2023 3:22 PM PST Approved by: Sai Bruce MD on 06/10/2023 3:22 PM PST Station ID: [id number]
== END 2023-06-10 14:00 | disposition home or self-care (01) ==
LOC: DI.N 13:45
PROVIDERS: ATTEND Family Medicine
DX: J40 Bronchitis, not specified as acute or chronic (principal)